=== PATIENT | female | born 1990 | race Caucasian/White ===

== ENCOUNTER 2018-05-05 12:15 | Inpatient (IN) | payer OTHER ==
[~2018-05-05] VITALS: Ht 160 cm; Wt 55.8 kg
== END 2018-05-11 11:52 | DRG 743 ==
LOC: O/R 05-08 06:25 → OB/GYN 05-08 12:15 → SURG-SUITE 05-08 19:22 → OB/GYN 05-08 19:45 → SURG-SUITE 05-11 11:52
PROVIDERS: Obstetrics & Gynecology Gynecologic Oncology
PROC: 0DTJ0ZZ Resection of Appendix, Open Approach (ICD-10-PCS; 2018-05-08)
PROC: 0DBW0ZZ Excision of Peritoneum, Open Approach (ICD-10-PCS; 2018-05-08)
PROC: 0UB00ZZ Excision of Right Ovary, Open Approach (ICD-10-PCS; principal; 2018-05-08 19:45)
DX: N80.1 Endometriosis of ovary (principal); N80.5 Endometriosis of intestine; N80.3 Endometriosis of pelvic peritoneum